=== PATIENT | male | born 1985 | race African-American/Black ===

== ENCOUNTER 2018-04-05 20:37 | Inpatient (IN) | payer SELFPAY ==
[2018-04-05] MEDS ORDERED: NORMAL SALINE 1000 ML 1,000 ML IV ONE ×2 (21:08→23:03)
[2018-04-05 21:48] LABS: ABSOLUTE EOSINOPHILS # (AUTO) 0.1 10^3/uL (0.0-0.6); ABSOLUTE LYMPHOCYTES (AUTO) 1.1 10^3/uL (0.5-4.7); ABSOLUTE MONOCYTES (AUTO) 0.8 10^3/uL (0.1-1.4); ABSOLUTE NEUT (AUTO) 12.1 10^3/uL (1.7-8.2); BASOPHILS % (AUTO) 0.3 % (0-2); EOSINOPHILS % (AUTO) 0.4 % (0-6); HEMATOCRIT 46.4 % (37.9-51.0); HEMOGLOBIN 15.9 g/dL (13.5-17.0); LYMPHOCYTES % (AUTO) 7.8 % (13-45); MEAN CORPUSCULAR HEMOGLOBIN 30.2 pg (27.0-33.4); MEAN CORPUSCULAR HGB CONC 34.4 g/dL (32.0-36.0); MEAN CORPUSCULAR VOLUME 88 fl (80-97); MONOCYTES % (AUTO) 5.6 % (3-13); PLATELET COUNT 262 10^3/uL (150-450); RED BLOOD COUNT 5.27 10^6/uL (4.35-5.55); RED CELL DISTRIBUTION WIDTH 14.4 % (11.5-14.0); SEGMENTED NEUTROPHILS % (AUTO) 85.9 % (42-78); TOTAL CELLS COUNTED % (AUTO) 100 %; WHITE BLOOD COUNT 14.1 10^3/uL (4.0-10.5)
[2018-04-05 22:00] LABS: APPEARANCE,URINE CLOUDY; BILIRUBIN,URINE SMALL (NEGATIVE); COLOR,URINE AMBER; GLUCOSE, URINE NEGATIVE (NEGATIVE); KETONES,URINE TRACE mg/dL (NEGATIVE); LEUKOCYTE ESTERASE,URINE SMALL (NEGATIVE); NITRITE,URINE NEGATIVE (NEGATIVE); PROTEIN,URINE 100 mg/dL (NEGATIVE); URINE SPECIFIC GRAVITY 1.019
[2018-04-05 22:01] LABS: ALANINE AMINOTRANSFERASE 37 U/L (21-72); ALBUMIN 5.9 g/dL (3.5-5.0); ALKALINE PHOSPHATASE 59 U/L (38-126); ANION GAP 17 (5-19); ASPARTATE AMINO TRANSFERASE 38 U/L (17-59); BILIRUBIN,DIRECT 0.3 mg/dL (0.0-0.4); BILIRUBIN,TOTAL 0.6 mg/dL (0.2-1.3); BLOOD UREA NITROGEN 26 mg/dL (7-20); CALCIUM 11.7 mg/dL (8.4-10.2); CARBON DIOXIDE 26 mmol/L (22-30); CHLORIDE 98 mmol/L (98-107); GLUCOSE 129 mg/dL (75-110); SODIUM 141.1 mmol/L (137-145)
[2018-04-05 22:07] LABS: TOTAL PROTEIN 10.7 g/dL (6.3-8.2)
[2018-04-05 22:11] LABS: POTASSIUM 6.9 mmol/L (3.6-5.0)
--- NOTE | 2018-04-05 22:48 | ER Document Report ---
ED Medical Screen (RME) - General Chief Complaint: Nausea/Vomiting Stated Complaint: HAND PAIN Time Seen by Provider: 04/05/18 22:43 Notes: Pt presents with abdominal cramping and leg cramping today. States he was working outside and was not drinking fluids. Pt denies CP or SOB. Denies CKD, or any urinary symptoms. - Related Data Allergies/Adverse Reactions: No Known Allergies Allergy (Unverified 04/05/18 20:42) Past Medical History - Social History Chew tobacco use (# tins/day): No Frequency of alcohol use: about 4 drinks every day Drug Abuse: None Renal/ Medical History: Denies: Hx Peritoneal Dialysis Physical Exam - Vital signs Vitals: Temp Pulse Resp BP Pulse Ox 98.2 F 90 16 122/75 97 04/05/18 20:51 04/05/18 20:51 04/05/18 20:51 04/05/18 20:51 04/05/18 20:51 - Abdominal Inspection: Normal Distension: No distension Bowel sounds: Normal Tenderness: Nontender Notes: states cramping has resolved since NSS blous. Course - Vital Signs Vital signs: Temp Pulse Resp BP Pulse Ox 98.2 F 90 16 122/75 97 04/05/18 20:51 04/05/18 20:51 04/05/18 20:51 04/05/18 20:51 04/05/18 20:51 - Laboratory Result Diagrams: 04/05/18 21:32 04/05/18 21:32 Laboratory results interpreted by me: 04/05/18 04/05/18 04/05/18 21:32 21:32 21:32 WBC 14.1 H RDW 14.4 H Seg Neutrophils % 85.9 H Lymphocytes % 7.8 L Absolute Neutrophils 12.1 H Potassium 6.9 H* BUN 26 H Creatinine 3.39 H Est GFR ( Amer) 25 L Est GFR (Non-Af Amer) 21 L Glucose 129 H Calcium 11.7 H Total Protein 10.7 H Albumin 5.9 H Urine Protein 100 H Urine Ketones TRACE H Urine Blood SMALL H Urine Bilirubin SMALL H Urine Urobilinogen 2.0 H Ur Leukocyte Esterase SMALL H Doctor's Discharge - Discharge Referrals: LOCALMD,NO [Primary Care Provider] - Follow up as needed
[2018-04-05] MEDS ORDERED: CALCIUM GLUCONATE 1000 MG/10 ML INJ IV ONE (23:02)
[2018-04-05] MEDS ORDERED: DEXTROSE 50%-WATER 25 GM/50 ML DISP.SYRIN IV ONE (23:03)
[2018-04-05] MEDS ORDERED: INSULIN REG, HUMAN 100 UNIT/ML 3 ML VIAL (PYX) IV ONE (23:03)
[2018-04-05] MEDS ORDERED: ALBUTEROL SULFATE 0.083% NEB 2.5 MG/3 ML AMPUL NEB ONE (23:03)
[2018-04-05] MEDS ORDERED: ONDANSETRON HCL INJ/PF 4 MG/2 ML SDV ONE (23:41)
--- NOTE | 2018-04-06 | ER Document Report ---
ED General - General Chief Complaint: Nausea/Vomiting Stated Complaint: NAUSEA/VOMITING Time Seen by Provider: 04/05/18 22:43 Notes: Patient is a 33-year-old male without known medical history, does not follow with the doctor who presents with severe bilateral hand spasming worse in the right. He describes this as a cramping, aching, spasming pain. Nothing improves or worsens his symptoms. He states that he is intermittently had similar symptoms since February 2017 but has never sought care. He denies any known history of renal dysfunction. 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 He denies feeling dehydrated today. No lightheadedness, weakness or near-syncope. No chest pain or shortness of breath. - Related Data Allergies/Adverse Reactions: No Known Allergies Allergy (Unverified 04/05/18 20:42) Past Medical History - General Information source: Patient - Social History Smoking Status: Current Every Day Smoker Chew tobacco use (# tins/day): No Frequency of alcohol use: about 4 drinks every day Drug Abuse: None Lives with: Spouse/Significant other Family History: Reviewed & Not Pertinent Patient has suicidal ideation: No Patient has homicidal ideation: No Renal/ Medical History: Denies: Hx Peritoneal Dialysis Review of Systems - Review of Systems Notes: Constitutional: Negative for fever. HENT: Negative for sore throat. Eyes: Negative for visual changes. Cardiovascular: Negative for chest pain. Respiratory: Negative for shortness of breath. Gastrointestinal: Negative for abdominal pain, vomiting or diarrhea. Genitourinary: Negative for dysuria. Musculoskeletal: Positive for bilateral hands spasming Skin: Negative for rash. Neurological: Negative for headaches, weakness or numbness. 10 point ROS negative except as marked above and in HPI. Physical Exam - Vital signs Vitals: Temp Pulse Resp BP Pulse Ox 98.2 F 90 16 122/75 97 04/05/18 20:51 04/05/18 20:51 04/05/18 20:51 04/05/18 20:51 04/05/18 20:51 Interpretation: Normal Notes: PHYSICAL EXAMINATION: GENERAL: Appears moderately uncomfortable but in no acute distress HEAD: Atraumatic, normocephalic. EYES: Pupils equal round and reactive to light, extraocular movements intact, sclera anicteric, conjunctiva are normal. ENT: nares patent, oropharynx clear without exudates. Moist mucous membranes. NECK: Normal range of motion, supple without lymphadenopathy LUNGS: Breath sounds clear to auscultation bilaterally and equal. No wheezes rales or rhonchi. HEART: Regular rate and rhythm without murmurs ABDOMEN: Soft, nontender, normoactive bowel sounds. No guarding, no rebound. No masses appreciated. EXTREMITIES: Normal range of motion, no pitting or edema. No cyanosis. NEUROLOGICAL: No focal neurological deficits. Moves all extremities spontaneously and on command. PSYCH: Normal mood, normal affect. SKIN: Warm, Dry, normal turgor, no rashes or lesions noted. Course - Re-evaluation Re-evalutation: 04/05/18 23:20 Patient presents with severe hyperkalemia with an associated EKG change of prominently peaked T waves and a moderately widened QRS complex. The patient has associated renal failure which appears to be an intrinsic kidney dysfunction as opposed to a prerenal azotemia. The patient has been started on IV fluids but given his potassium of 6.9 with associated EKG changes immediately went to assess the patient. IV fluids, insulin with dextrose, albuterol nebulizer and 3 g of calcium gluconate were all administered rapidly to begin normalization of his EKG and down trend of his potassium. Will also give a dose of Kayexalate. Patient does report approximately 1 year of intermittent muscle cramps, but has never sought care and has never had labs so it is difficult to ascertain when his kidney dysfunction became so severe. We do not currently have nephrology coverage. He will remain on plant guard and I will initiate a transfer to [facility]. 04/06/18 01:45 I did discuss this case with Dr. Reese the hospitalist at [facility] who declines transfer at this time stating the patient does not require an emergent nephrology consultation. The patient's repeat EKG does show improvement of the peak T waves. Patient remains hemodynamically within acceptable limits. Will continue to monitor and reassess at regular intervals. He denies any ongoing symptoms at this time. Will discuss with the hospitalist here. 04/06/18 02:57 Patient's repeat basic metabolic panel is much improved, creatinine down to 1.8 , potassium down to 5. Patient clinically feels much improved, no longer having muscle spasms. Renal ultrasound noted to be normal. EKG remains improved on telemetry. I discussed with the hospitalist who has accepted the patient for admission. - Vital Signs Vital signs: Temp Pulse Resp BP Pulse Ox 97.6 F 90 17 100/67 97 04/06/18 02:47 04/05/18 20:51 04/06/18 01:01 04/06/18 01:01 04/06/18 01:01 - Laboratory Result Diagrams: 04/05/18 21:32 04/06/18 01:45 Laboratory results interpreted by me: 04/05/18 04/05/18 04/05/18 21:32 21:32 21:32 WBC 14.1 H RDW 14.4 H Seg Neutrophils % 85.9 H Lymphocytes % 7.8 L Absolute Neutrophils 12.1 H Potassium 6.9 H* BUN 26 H Creatinine 3.39 H Est GFR ( Amer) 25 L Est GFR (Non-Af Amer) 21 L Glucose 129 H Calcium 11.7 H Creatine Kinase Total Protein 10.7 H Albumin 5.9 H Urine Protein 100 H Urine Ketones TRACE H Urine Blood SMALL H Urine Bilirubin SMALL H Urine Urobilinogen 2.0 H Ur Leukocyte Esterase SMALL H 04/05/18 04/06/18 21:32 01:45 WBC RDW Seg Neutrophils % Lymphocytes % Absolute Neutrophils Potassium BUN 24 H Creatinine 1.80 H Est GFR ( Amer) 53 L Est GFR (Non-Af Amer) 43 L Glucose Calcium 10.5 H Creatine Kinase 332 H Total Protein Albumin Urine Protein Urine Ketones Urine Blood Urine Bilirubin Urine Urobilinogen Ur Leukocyte Esterase - Diagnostic Test Radiology reviewed: Reports reviewed - EKG Interpretation by Me Additional EKG results interpreted by me: 04/06/18 02:58 EKG 1: Sinus rhythm, rate 72, markedly peaked T waves. QTc 381. EKG 2: Sinus rhythm, rate 67. Peak T waves much improved. QTC is 380. Critical Care Note - Critical Care Note Total time excluding time spent on procedures (mins): 38 Comments: Critical care time spent obtaining history from patient or surrogate, discussions with consultants, development of treatment plan with patient or surrogate, evaluation of patient's response to treatment, examination of patient , ordering and performing treatments and interventions, ordering and review of laboratory studies, re-evaluation of patient's condition, ordering and review of radiographic studies and review of old charts Discharge - Discharge Clinical Impression: Hyperkalemia Acute renal failure Qualifiers: Acute renal failure type: unspecified Qualified Code(s): N17.9 - Acute kidney failure, unspecified Condition: Fair Disposition: ADMITTED OBSERVATION Admitting Provider: Hospitalist Unit Admitted: Telemetry Referrals: LOCAL,NO [NO LOCAL MD] - Follow up as needed
[2018-04-06 02:03] LABS: ANION GAP 11 (5-19); BLOOD UREA NITROGEN 24 mg/dL (7-20); CALCIUM 10.5 mg/dL (8.4-10.2); CARBON DIOXIDE 23 mmol/L (22-30); CHLORIDE 107 mmol/L (98-107); GLUCOSE 78 mg/dL (75-110); SODIUM 141.3 mmol/L (137-145)
--- NOTE | 2018-04-06 02:36 | RADIOLOGY REPORT (SQ) ---
EXAM DESCRIPTION: US RETROPERITONEUM LIMITED COMPLETED DATE/TME: 04/06/2018 01:38 CLINICAL HISTORY: 33 years Male, renal dysfunction Comparison: None. LIMITATIONS: None. FINDINGS: 10-cm right kidney, 9-cm left kidney, and urinary bladder with no demonstrated bilateral ureteral jet flow (nonspecific) appear otherwise of normal size, shape, echotexture, and vascularity. IMPRESSION: Normal renal sonogram.
[2018-04-06] MEDS ORDERED: SODIUM POLYSTYRENE SULFONATE 15 GM/60 ML PO ONE (02:48)
[2018-04-06] MEDS ORDERED: FUROSEMIDE INJ/PF 40 MG/4 ML SDV IV ONE (02:48)
[2018-04-06] MEDS ORDERED: PROMETHAZINE HCL INJ 25 MG/1 ML VIAL IV PRN (04:16)
[2018-04-06] MEDS ORDERED: ACETAMINOPHEN 325 MG TABLET PO PRN (04:16)
[2018-04-06] MEDS ORDERED: MAG HYDROX/AL HYDROX/SIMETH SUSP 30 ML UDCUP PO PRN (04:16)
[2018-04-06] MEDS ORDERED: SODIUM POLYSTYRENE SULFONATE 15 GM/60 ML ONE ×2 (04:30→04:50)
--- NOTE | 2018-04-06 04:54 | PDOC H&P ---
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 He went home and around 2 PM he felt that his hands were locking, he had cramps on his upper and lower extremities, he has started drinking water but was feeling nauseous and started vomiting. Warren that his muscles were swollen. At some point he felt dizzy and lightheaded with headaches. The pain was excruciating and he decided to come to the emergency department. Denies fever, chills, diarrhea, shortness of breath or chest pain. Monitor in the emergency department was found with potassium 6.9 and creatinine 3.39 Initially felt that the patient is to be transferred to [place] but in the facility do not feel that a transfer was necessary. Patient had EKG changes with peak T waves. Hyperkalemia cocktail was given and his potassium came down to 5. 2 L IV fluid bolus given initially. Past Medical History Medical History: None Past Surgical History Past Surgical History: Reports: None Social History Lives with: Spouse/Significant other Smoking Status: Current Every Day Smoker - Half pack per day Frequency of Alcohol Use: Heavy - Drinks 4-5 cans of beer a day Hx Recreational Drug Use: No Hx Prescription Drug Abuse: No Family History Family History: Reviewed & Not Pertinent Family History: 55 years old with no medical condition, father 58 years old and no medical conditions. Parental Family History Reviewed: Yes Children Family History Reviewed: NA Sibling(s) Family History Reviewed.: NA Medication/Allergy Allergies/Adverse Reactions: No Known Allergies Allergy (Unverified 04/05/18 20:42) Review of Systems Review of Systems: As outlined in the HPI, others negative Physical Exam Vital Signs: Temp Pulse Resp BP Pulse Ox 97.6 F 90 17 100/67 97 04/06/18 02:47 04/05/18 20:51 04/06/18 01:01 04/06/18 01:01 04/06/18 01:01 Additional comments: General appearance: Well-developed, well-nourished, alert and cooperative, and appears to be in no acute distress Head: Normocephalic Eyes: PEERL, EOMI, vision is grossly intact. Ears: External auditory canal and tympanic membranes clear, hearing grossly intact. Nose: No nasal discharge. Throat: Oral cavity and pharynx normal. No inflammation, swelling, exudate or lesions. Neck: Neck supple, nontender without lymphadenopathy, masses or thyromegaly. Cardiac: Normal S1 and S2. No S3, S4 or murmurs. Rhythm is regular. There is no peripheral edema, cyanosis or pallor. Extremities are warm and well perfused. Capillary refill is less than 2 seconds. No carotid bruits. Lungs: Clear to auscultation and percussion without rales, rhonchi, wheezing or diminished breath sounds. Not using accessory muscles. Abdomen: Positive bowel sounds. Soft. Nondistended, nontender. No guarding or rebound. No masses. No hepatosplenomegaly Extremities: No significant deformity or joint abnormality. No edema. Peripheral pulses intact. No varicosities. Neurological: Cranial nerves II through XII grossly intact. Strength and sensation symmetric and intact throughout. Reflexes 2+ throughout. Skin: Skin normal color, texture and turgor with no lesions or eruptions, warm and dry. Psychiatric: The mental examination revealed the patient was oriented to person , place, and time. The patient was able to demonstrate good judgment on recent , without hallucinations, abnormal affect or abnormal behaviors. Results Laboratory Results: 04/05/18 04/05/18 04/05/18 21:32 21:32 21:32 WBC 14.1 H RBC 5.27 Hgb 15.9 Hct 46.4 MCV 88 MCH 30.2 MCHC 34.4 RDW 14.4 H Plt Count 262 Seg Neutrophils % 85.9 H Lymphocytes % 7.8 L Monocytes % 5.6 Eosinophils % 0.4 Basophils % 0.3 Absolute Neutrophils 12.1 H Absolute Lymphocytes 1.1 Absolute Monocytes 0.8 Absolute Eosinophils 0.1 Absolute Basophils 0.0 Sodium 141.1 Potassium 6.9 H* Chloride 98 Carbon Dioxide 26 Anion Gap 17 BUN 26 H Creatinine 3.39 H Est GFR ( Amer) 25 L Est GFR (Non-Af Amer) 21 L Glucose 129 H Calcium 11.7 H Total Bilirubin 0.6 Direct Bilirubin 0.3 Neonat Total Bilirubin Not Reportable AST 38 ALT 37 Alkaline Phosphatase 59 Creatine Kinase 332 H Total Protein 10.7 H Albumin 5.9 H Lipase 26.0 04/06/18 01:45 WBC RBC Hgb Hct MCV MCH MCHC RDW Plt Count Seg Neutrophils % Lymphocytes % Monocytes % Eosinophils % Basophils % Absolute Neutrophils Absolute Lymphocytes Absolute Monocytes Absolute Eosinophils Absolute Basophils Sodium 141.3 Potassium 5.0 D Chloride 107 Carbon Dioxide 23 Anion Gap 11 BUN 24 H Creatinine 1.80 H Est GFR ( Amer) 53 L Est GFR (Non-Af Amer) 43 L Glucose 78 Calcium 10.5 H Total Bilirubin Direct Bilirubin Neonat Total Bilirubin AST ALT Alkaline Phosphatase Creatine Kinase Total Protein Albumin Lipase Impressions: Renal Ultrasound 04/06/18 01:38 IMPRESSION: Normal renal sonogram. Assessment & Plan - Diagnosis (1) Acute renal failure Qualifiers: Acute renal failure type: unspecified Qualified Code(s): N17.9 - Acute kidney failure, unspecified Is this a current diagnosis for this admission?: Yes Plan: Comes with severe dehydration, BUN 26 and creatinine 3.39, after IV hydration his BUN dropped to 24 and creatinine to 1.8. We will continue with IV fluids in the form of normal saline running at 1 25 cc/h. Renal ultrasound was done and came back normal. Warren that no further intervention is warranted. (2) Hyperkalemia Is this a current diagnosis for this admission?: Yes Plan: Potassium initially 6.9, after hyperkalemia cocktail given came back to 5. Initial EKG changes normalized. We will continue with telemetry monitoring. (3) Elevated CK Is this a current diagnosis for this admission?: Yes Plan: CK 332, likely mild rhabdomyolysis. After have IV hydration repeat CK in the morning. - Time Time Spent: 30 to 50 Minutes - Inpatient Certification Based on my medical assessment, after consideration of the patient's comorbidities, presenting symptoms, or acuity I expect that the services needed warrant INPATIENT care.: Yes I certify that my determination is in accordance with my understanding of Medicare's requirements for reasonable and necessary INPATIENT services [42 CFR 412.3e].: Yes Medical Necessity: Risk of Complication if Not Cared For in Hospital
[2018-04-06 05:15] LABS: URINE AMPHETAMINES SCREEN NEGATIVE; URINE BARBITURATES SCREEN NEGATIVE; URINE BENZODIAZEPINES SCREEN NEGATIVE; URINE COCAINE SCREEN NEGATIVE; URINE MARIJUANA (THC) SCREEN UNCONFIRMED POSITIVE; URINE METHADONE SCREEN NEGATIVE; URINE PHENCYCLIDINE SCREEN NEGATIVE
[2018-04-06] MEDS: HEPARIN SOD (PORCINE) 5,000 UNIT/ML 1 ML SYRINGE SUBCUT SCH ×2 (05:59→13:52)
[2018-04-06] MEDS: NORMAL SALINE 1000 ML 1,000 ML IV PRN ×2 (05:59→13:51)
[2018-04-06 06:46] LABS: ANION GAP 13 (5-19); BLOOD UREA NITROGEN 20 mg/dL (7-20); CALCIUM 10.7 mg/dL (8.4-10.2); CARBON DIOXIDE 21 mmol/L (22-30); CHLORIDE 107 mmol/L (98-107); CREATINE KINASE 530 U/L (55-170); GLUCOSE 103 mg/dL (75-110); POTASSIUM 4.3 mmol/L (3.6-5.0); SODIUM 140.8 mmol/L (137-145)
[2018-04-06 08:21] LABS: ABSOLUTE LYMPHOCYTES (AUTO) 2.4 10^3/uL (0.5-4.7); ABSOLUTE MONOCYTES (AUTO) 1.2 10^3/uL (0.1-1.4); ABSOLUTE NEUT (AUTO) 8.5 10^3/uL (1.7-8.2); BASOPHILS % (AUTO) 0.2 % (0-2); EOSINOPHILS % (AUTO) 0.1 % (0-6); HEMATOCRIT 39.6 % (37.9-51.0); LYMPHOCYTES % (AUTO) 20.1 % (13-45); MEAN CORPUSCULAR HEMOGLOBIN 29.9 pg (27.0-33.4); MEAN CORPUSCULAR HGB CONC 34.3 g/dL (32.0-36.0); MEAN CORPUSCULAR VOLUME 87 fl (80-97); MONOCYTES % (AUTO) 9.8 % (3-13); PLATELET COUNT 214 10^3/uL (150-450); RED BLOOD COUNT 4.55 10^6/uL (4.35-5.55); RED CELL DISTRIBUTION WIDTH 14.6 % (11.5-14.0); SEGMENTED NEUTROPHILS % (AUTO) 69.8 % (42-78); TOTAL CELLS COUNTED % (AUTO) 100 %; WHITE BLOOD COUNT 12.2 10^3/uL (4.0-10.5)
[2018-04-06 08:22] LABS: HEMOGLOBIN 13.6 g/dL (13.5-17.0)
--- NOTE | 2018-04-06 10:01 | EKG REPORT ---
SEVERITY:- NORMAL ECG - SINUS RHYTHM ST ELEV, PROBABLE NORMAL EARLY REPOL PATTERN : Confirmed by: Guzman Mcclure MD 06-Apr-2018 10:00:12
--- NOTE | 2018-04-06 10:06 | EKG REPORT ---
SEVERITY:- BORDERLINE ECG - SINUS RHYTHM ST ELEV, PROBABLE NORMAL EARLY REPOL PATTERN TALL T, CONSIDER METABOLIC/ISCHEMIC ABNRM : Confirmed by: Guzman Mcclure MD 06-Apr-2018 10:06:11
[2018-04-06 13:14] LABS: ANION GAP 9 (5-19); BLOOD UREA NITROGEN 15 mg/dL (7-20); CALCIUM 9.5 mg/dL (8.4-10.2); CARBON DIOXIDE 27 mmol/L (22-30); CHLORIDE 102 mmol/L (98-107); GLUCOSE 143 mg/dL (75-110); POTASSIUM 4.1 mmol/L (3.6-5.0); SODIUM 138.4 mmol/L (137-145)
[2018-04-06 13:19] VITALS: BP 110/77
--- NOTE | 2018-04-06 15:09 | PDOC DISCHARGE SUMMARY ---
General - Admit/Disc Date/PCP Admission Date/Primary Care Provider: 04/06/18 04:16 Discharge Date: 04/06/18 - Discharge Diagnosis (1) Acute renal failure Is this a current diagnosis for this admission?: Yes Summary: Acute kidney injury as evidenced by elevated BUN and creatinine. These levels of return to normal with hydration. (2) Elevated CK Is this a current diagnosis for this admission?: Yes Summary: CK was mildly elevated in the 300s at admission and rigoberto to the 500s after several hours. Patient has had no further symptoms and he will be discharged with no evidence of rhabdomyolysis per clinical evaluation. (3) Hyperkalemia Is this a current diagnosis for this admission?: Yes Summary: Initial hyperkalemia with a level of 6.0 was treated aggressively in the emergency room with a hypokalemia protocol. Patient's potassium has subsequently returned to normal levels and remained there with IV hydration and oral hydration. - Additional Information Resuscitation Status: Full Code Discharge Diet: Regular, Other (Comments) - Drink plenty of water and other fluids. Alcoholic beverages are discouraged for the next 48 hours. 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 His symptoms at that time were muscle spasms and cramps in his hands and in both lower extremities. He has started drinking water but was feeling nauseous and started vomiting, and he felt that his muscles were swollen. He also complained of dizziness and lightheadedness with a constant global headache. Hospital Course Hospital Course: In the emergency department he was found to have a potassium of 6.9 and a creatinine of 3.39. He was treated with IV fluid boluses and a hyperkalemia protocol per ER routine. Subsequently his potassium has returned to a normal level of 4.1 and his creatinine is also normal at 1.1. Because of his excellent response to therapy and his resolution of symptoms he was ready for discharge to home on the afternoon of 04/06/2018. Physical Exam Vital Signs: Temp Pulse Resp BP Pulse Ox 98.5 F 62 16 110/77 100 04/06/18 12:39 04/06/18 14:00 04/06/18 12:39 04/06/18 12:39 04/06/18 12:39 Intake & Output 04/05/18 04/06/18 04/07/18 06:59 06:59 06:59 Intake Total 983 Balance 983 General appearance: PRESENT: no acute distress, cooperative Head exam: PRESENT: atraumatic, normocephalic Eye exam: PRESENT: conjunctiva pink. ABSENT: conjunctival injection Ear exam: PRESENT: normal external ear exam. ABSENT: drainage Mouth exam: PRESENT: moist, neck supple Neck exam: ABSENT: thyromegaly, tracheal deviation Respiratory exam: PRESENT: clear to auscultation rupa, symmetrical, unlabored Cardiovascular exam: PRESENT: RRR. ABSENT: clicks, gallop, rubs Vascular exam: PRESENT: normal capillary refill. ABSENT: pallor GI/Abdominal exam: PRESENT: normal bowel sounds, soft. ABSENT: tenderness Extremities exam: ABSENT: joint swelling, pedal edema Musculoskeletal exam: PRESENT: full ROM, normal inspection Neurological exam: PRESENT: alert, awake, oriented to person, oriented to place , oriented to time, oriented to situation, CN II-XII grossly intact. ABSENT: motor sensory deficit Psychiatric exam: PRESENT: appropriate affect, normal mood Skin exam: ABSENT: jaundice, rash, urticaria Results Laboratory Results: 04/06/18 06:05 04/06/18 12:23 04/06/18 04/06/18 04/06/18 06:05 06:05 12:23 WBC 12.2 H RBC 4.55 Hgb 13.6 D Hct 39.6 MCV 87 MCH 29.9 MCHC 34.3 RDW 14.6 H Plt Count 214 Seg Neutrophils % 69.8 Lymphocytes % 20.1 Monocytes % 9.8 Eosinophils % 0.1 Basophils % 0.2 Absolute Neutrophils 8.5 H Absolute Lymphocytes 2.4 Absolute Monocytes 1.2 Absolute Eosinophils 0.0 Absolute Basophils 0.0 Sodium 140.8 138.4 Potassium 4.3 4.1 Chloride 107 102 Carbon Dioxide 21 L 27 Anion Gap 13 9 BUN 20 15 Creatinine 1.32 H 1.11 Est GFR ( Amer) > 60 > 60 Est GFR (Non-Af Amer) > 60 > 60 Glucose 103 143 H Calcium 10.7 H 9.5 Magnesium 2.2 1.9 04/06/18 06:05 Creatine Kinase 530 H Impressions: Renal Ultrasound 04/06/18 01:38 IMPRESSION: Normal renal sonogram. Qualifiers - * PATIENT BEING DISCHARGED WITH ANY OF THE FOLLOWING DIAGNOSIS: No Plan Discharge Plan: Discharge home in improved and stable condition. Encourage increased oral water and other nonalcoholic fluids over the next 48 hours. Time Spent: Greater than 30 Minutes
== END 2018-04-06 15:47 | disposition home or self-care (01) | DRG 683 ==
LOC: ER 20:37 → EH 04-06 03:33 → OBSVTOIN 04-06 04:16 → 4S 04-06 12:35
PROVIDERS: ADMIT Internal Medicine; ATTEND Internal Medicine
DX: N17.9 Acute kidney failure, unspecified (principal); M62.82 Rhabdomyolysis; E87.5 Hyperkalemia; E86.0 Dehydration; F17.210 Nicotine dependence, cigarettes, uncomplicated
CPT/HCPCS: 36415; 76775; 80048; 80053; 80307; 81001; 82550; 83690; 83735; 85025; 93005; 93010; 94640; 96361; 96374; 96375; 99291; J0610; J1644; J1815; J2405; J3490; J7030

== ENCOUNTER 2020-05-04 13:49 | Emergency (ER) | payer SELFPAY ==
[2020-05-04] MEDS ORDERED: ONDANSETRON 4 MG TAB.RAPDIS PO ONE (14:35)
--- NOTE | 2020-05-04 14:37 | ER Document Report ---
ED Medical Screen (RME) - General Chief Complaint: Vomiting/Diarrhea Stated Complaint: VOMITING,DIARRHEA Time Seen by Provider: 05/04/20 14:33 Mode of Arrival: Ambulatory Information source: Patient Notes: 35-year-old male presented to ED for complaint of nausea and vomiting diarrhea. He states he has had at least 10-20 emesis and 6 liquid stools today. He states it started about 5 or 6:00 this morning. Denies any fever but states he does get a hot flash when he vomits. He does have abdominal cramping level 5 pain. He did request Zofran but did not want any Tylenol or Motrin at this time. We will order blood urine flu and strep test. As well as a chest x-ray. Patient will be seen by another provider. I have greeted and performed a rapid initial assessment of this patient. A comprehensive ED assessment and evaluation of the patient, analysis of test results and completion of medical decision making process will be conducted by an additional ED providers. TRAVEL OUTSIDE OF THE [place] IN LAST 30 DAYS: No - Related Data Allergies/Adverse Reactions: No Known Allergies Allergy (Unverified 04/05/18 20:42) Past Medical History Renal/ Medical History: Denies: Hx Peritoneal Dialysis Physical Exam - Vital signs Vitals: Temp Pulse Resp BP Pulse Ox 98.2 F 75 16 130/76 H 100 05/04/20 13:59 05/04/20 13:59 05/04/20 13:59 05/04/20 13:59 05/04/20 13:59 Course - Vital Signs Vital signs: Temp Pulse Resp BP Pulse Ox 98.2 F 75 16 130/76 H 100 05/04/20 13:59 05/04/20 13:59 05/04/20 13:59 05/04/20 13:59 05/04/20 13:59
[2020-05-04] MEDS ORDERED: METOCLOPRAMIDE HCL INJ/PF 10 MG/2 ML SDV IV ONE (15:38)
[2020-05-04] MEDS ORDERED: DICYCLOMINE HCL INJ 20 MG/2 ML AMPULE IM ONE (15:39)
[2020-05-04] MEDS ORDERED: NORMAL SALINE 1000 ML 1,000 ML IV PRN (15:39)
--- NOTE | 2020-05-04 15:44 | ER Document Report ---
ED General - General Chief Complaint: Nausea/Vomiting/Diarrhea Stated Complaint: VOMITING,DIARRHEA Time Seen by Provider: 05/04/20 14:33 Mode of Arrival: Ambulatory Notes: Patient is an otherwise healthy 35-year-old -[place] male coming in today with chief complaint intractable vomiting and diarrhea since early this morning. States dinner at the [employer] buffet last night and a couple of beers and went to bed feeling relatively fine. Woke up with violent vomiting and diarrhea. No fevers or shaking chills. No myalgias. No cough or cold symptoms. TRAVEL OUTSIDE OF THE [place] IN LAST 30 DAYS: No - Related Data Allergies/Adverse Reactions: No Known Allergies Allergy (Unverified 04/05/18 20:42) Past Medical History - General Information source: Patient - Social History Smoking Status: Current Every Day Smoker Chew tobacco use (# tins/day): No Frequency of alcohol use: Social Drug Abuse: Marijuana Family History: Reviewed & Not Pertinent Renal/ Medical History: Denies: Hx Peritoneal Dialysis Review of Systems - Review of Systems Notes: Constitutional: No fevers. No chills. EENT: No eye redness. No eye pain. No ear pain. No sore throat. Cardiovascular: No chest pain. No palpitations. Respiratory: No cough. No shortness of breath. No respiratory distress. Gastrointestinal: Positive abdominal cramping, vomiting, and diarrhea Genitourinary: Atraumatic. No lesions. No pain. No discharge. Musculoskeletal: Atraumatic. No swelling. No deformities. Skin: No rash or lesions. Lymphatic: No swollen lymph nodes. Neurologic: No headache. No syncope. Psychiatric: No suicidal or homicidal ideation. Physical Exam - Vital signs Vitals: Temp Pulse Resp BP Pulse Ox 98.2 F 75 16 130/76 H 100 05/04/20 13:59 05/04/20 13:59 05/04/20 13:59 05/04/20 13:59 05/04/20 13:59 - Notes Notes: General: Well-developed, well-nourished. In no acute distress. Non-toxic appearing. Cardiac: Well-perfused. Regular rate and rhythm. No murmurs, rubs, or gallops. Pulmonary: No respiratory distress. No cyanosis. Bilateral lung fiels are clear to auscultation. Abdominal: Diffusely tender to palpation in all regions. Bowel sounds are hyperactive. No guarding or rebound HEENT: Head is atraumatic. Conjunctivae not reddened. No tearing. PERRL. EOMI. Orbits atraumatic. No periorbital swelling or erythema. Oropharynx is without erythema, swelling, or exudates. Neck: Supple. No adenopathy. No meningismus. Dermatologic: Warm with good turgor. No rash. Atraumatic. Chest: Atraumatic. No chest wall tenderness to palpation. Musculoskeletal: Moves all extremities well. No range of motion deficits. no muscular or joint tenderness. No paraspinal muscle tenderness. no midline spinal tenderness or step-off. Genitourinary: Examination deferred Neurologic: No gross neurologic deficits. Psychiatric: Normal mood. Course - Re-evaluation Re-evalutation: 05/04/20 15:42 Patient is placed in pod 5 as a POI. He has a history and physical consistent with gastroenteritis. Ordered fluids, Reglan, Bentyl and will follow his labs. 05/04/20 18:51 Feeling better after Reglan Bentyl and fluids. Still has about half of a liter left. I gave him some ice water which she is taking down without difficulty. Labs all look good and reassuring it sounds like a viral gastroenteritis. No repletion is required at this time. We will discharge him home with take-home Zofran ODT pack. - Vital Signs Vital signs: Temp Pulse Resp BP Pulse Ox 98.2 F 75 16 130/76 H 100 05/04/20 14:34 05/04/20 13:59 05/04/20 13:59 05/04/20 13:59 05/04/20 13:59 - Laboratory Result Diagrams: 05/04/20 17:20 05/04/20 17:20 Laboratory results interpreted by me: 05/04/20 05/04/20 05/04/20 16:50 17:20 17:20 WBC 13.2 H RDW 14.3 H Lymph % (Auto) 6.5 L Absolute Neuts (auto) 11.7 H Seg Neutrophils % 88.3 H Total Protein 8.9 H Albumin 5.1 H Lipase 19.6 L Urine Blood MODERATE H - Diagnostic Test Radiology reviewed: Reports reviewed Discharge - Discharge Clinical Impression: Gastroenteritis, Elevated blood pressure reading Condition: Good Disposition: HOME, SELF-CARE Instructions: Antinausea Medication ([facility]), Clear Liquid Diet ([facility]), Diarrhea, Nonspecific ([facility]), Gastroenteritis (adult) ([facility]), Intravenous (IV) Fluids ([facility]), Vomiting ([facility]) Additional Instructions: You may [facility] in the [facility] for routine follow-up. If you have sudden worsening of your condition you can return here to be reassessed.
--- NOTE | 2020-05-04 15:51 | RADIOLOGY REPORT (SQ) ---
EXAM DESCRIPTION: CHEST SINGLE VIEW IMAGES COMPLETED DATE/TIME: 05/04/2020 3:40 pm REASON FOR STUDY: #1 SYNCOPE COMPARISON: None. EXAM PARAMETERS: NUMBER OF VIEWS: One view. TECHNIQUE: Single frontal radiographic view of the chest acquired. RADIATION DOSE: NA LIMITATIONS: None. FINDINGS: LUNGS AND PLEURA: No opacities, masses or pneumothorax. No pleural effusion. MEDIASTINUM AND HILAR STRUCTURES: No masses. Contour normal. HEART AND VASCULAR STRUCTURES: Heart normal in size. Normal vasculature. BONES: No acute findings. HARDWARE: None in the chest. OTHER: No other significant finding. IMPRESSION: NO ACUTE RADIOGRAPHIC FINDING IN THE CHEST. TECHNICAL DOCUMENTATION: JOB ID: [id number] 2010 [employer]- All Rights Reserved Reading location - IP/workstation name: [email or web address]
[2020-05-04 17:42] LABS: APPEARANCE,URINE CLEAR; BILIRUBIN,URINE NEGATIVE (NEGATIVE); COLOR,URINE YELLOW; GLUCOSE, URINE NEGATIVE (NEGATIVE); KETONES,URINE NEGATIVE (NEGATIVE); LEUKOCYTE ESTERASE,URINE NEGATIVE (NEGATIVE); NITRITE,URINE NEGATIVE (NEGATIVE); PROTEIN,URINE NEGATIVE (NEGATIVE); UROBILINOGEN,URINE NEGATIVE mg/dL (<2.0)
[2020-05-04 17:44] LABS: ABSOLUTE LYMPHOCYTES (AUTO) 0.9 10^3/uL (0.5-4.7); ABSOLUTE MONOCYTES (AUTO) 0.6 10^3/uL (0.1-1.4); ABSOLUTE NEUT (AUTO) 11.7 10^3/uL (1.7-8.2); BASOPHILS % (AUTO) 0.3 % (0-2); EOSINOPHILS % (AUTO) 0.1 % (0-6); HEMATOCRIT 44.5 % (37.9-51.0); HEMOGLOBIN 15.9 g/dL (13.5-17.0); LYMPHOCYTES % (AUTO) 6.5 % (13-45); MEAN CORPUSCULAR HEMOGLOBIN 31.6 pg (27.0-33.4); MEAN CORPUSCULAR HGB CONC 35.7 g/dL (32.0-36.0); MEAN CORPUSCULAR VOLUME 88 fl (80-97); MONOCYTES % (AUTO) 4.8 % (3-13); PLATELET COUNT 246 10^3/uL (150-450); RED BLOOD COUNT 5.04 10^6/uL (4.35-5.55); RED CELL DISTRIBUTION WIDTH 14.3 % (11.5-14.0); SEGMENTED NEUTROPHILS % (AUTO) 88.3 % (42-78); TOTAL CELLS COUNTED % (AUTO) 100 %; WHITE BLOOD COUNT 13.2 10^3/uL (4.0-10.5)
[2020-05-04 17:55] LABS: ALBUMIN 5.1 g/dL (3.5-5.0); ALKALINE PHOSPHATASE 54 U/L (38-126); ANION GAP 13 (5-19); ASPARTATE AMINO TRANSFERASE 32 U/L (17-59); BILIRUBIN,DIRECT 0.2 mg/dL (0.0-0.4); BILIRUBIN,TOTAL 0.4 mg/dL (0.2-1.3); BLOOD UREA NITROGEN 13 mg/dL (7-20); CARBON DIOXIDE 27 mmol/L (22-30); CHLORIDE 100 mmol/L (98-107); GLUCOSE 106 mg/dL (75-110); POTASSIUM 4.8 mmol/L (3.6-5.0); TOTAL PROTEIN 8.9 g/dL (6.3-8.2)
[2020-05-04] MEDS ORDERED: ONDANSETRON ODT 4 MG TAB (6 TAB/ER DISP) PO PRN (18:54)
[2020-05-04 19:47] VITALS: BP 121/79
== END 2020-05-04 19:49 | disposition home or self-care (01) ==
LOC: ER 13:49
DX: K52.9 Noninfective gastroenteritis and colitis, unspecified (principal); R03.0 Elevated blood-pressure reading, without diagnosis of hypertension; R11.2 Nausea with vomiting, unspecified; R10.9 Unspecified abdominal pain; F17.200 Nicotine dependence, unspecified, uncomplicated
CPT/HCPCS: 99284; 96361; 96374; 96375; 36415; 87086; 83690; 85025; 80053; 81001; 71045; J0500; S0119; J2765; J7030